=== PATIENT | male | born 1940 | race Caucasian/White ===

== ENCOUNTER 2025-01-15 16:05 | Emergency (ER) | payer MEDICARE, BC, SELFPAY ==
[2025-01-15 16:18] VITALS: BP 119/81; PULSE 67; RESP 18; TEMP 36.7; O2SAT 100; BMI 31.9
--- NOTE | 2025-01-15 16:31 | CRLHL7_ITS ---
For Patients: As a result of the Century Cures Act, medical imaging exams and procedure reports are released immediately into your electronic medical record. You may view this report before your referring provider. If you have questions, please contact your health care provider. INDICATION: Fall, on Eliquis TECHNIQUE: Noncontrast axial CT of the head. Coronal and sagittal reformats. Bone and soft tissue algorithms. COMPARISON: None. FINDINGS: Intact calvarium. No acute intracranial hemorrhage identified. No intracranial mass effect. Preserved francis-white matter differentiation. Mild generalized cerebral volume loss. Scattered hypoattenuation throughout the cerebral white matter typical of chronic microangiopathy. Unremarkable midline structures. Calcific intracranial atherosclerotic plaquing. Prominent lobulated left maxillary sinus mucosal thickening. No paranasal sinus air-fluid level or mastoid effusion. Bilateral lens implants. IMPRESSION: 1. No skull fracture or acute intracranial hemorrhage identified. Please note that all CT scans at this facility use dose modulation, iterative reconstruction, and/or weight-based dosing when appropriate to reduce radiation dose to as low as reasonably achievable. Dictated by Charo Juárez MD @ 01/15/2025 5:01:49 PM (Electronically Signed)
--- NOTE | 2025-01-15 17:07 | ED.FALL ---
HPI - Fall General Chief Complaint: Fall/Minor Trauma Stated Complaint: Fall, head lac Time Seen by Provider: 01/15/25 16:37 History of Present Illness HPI Narrative: This 84-year-old male comes in for evaluation of head injury that occurred prior to arrival. He was carrying 1 end of a 32 ft ladder and walking down hill when he lost balance and fell forward. He put out his hands to break his fall but did hit his head and has a laceration on his forehead. He did not have loss of consciousness and does not report any other injury. He was able to get up and ambulate normally. He is not complaining of a headache. He states that his head injury kept bleeding in bleeding because he is on Eliquis. He reports some evolving neck stiffness but does not have any midline tenderness. Related Data Home Medications ?Medication ?Instructions ?Recorded ?Confirmed apixaban 5 mg tablet (Eliquis) 5 mg PO BID 01/15/25 01/15/25 aspirin 81 mg capsule 81 mg PO DAILY 01/15/25 01/15/25 atorvastatin 10 mg tablet (Lipitor) 10 mg PO DAILY 01/15/25 01/15/25 lisinopril 01/15/25 metoprolol tartrate .Route 01/15/25 Allergies Allergy/AdvReac Type Severity Reaction Status Date / Time No Known Drug Allergies Allergy Verified 01/15/25 16:28 Review of Systems Status of ROS: Reports: 10 or more systems reviewed and unremarkable except as noted in History and below Narrative: Constitutional: No fevers, no weight gain or loss. Eyes: No discharge. No vision changes. HENT: No congestion, no sore throat, no ear pain. Cardiovascular: No chest pain, no palpitations. Respiratory: No shortness of breath, no wheezes, no cough. Gastrointestinal: No abdominal pain, no vomiting, no diarrhea. Genitourinary: No dysuria, no hematuria. Musculoskeletal: Normal range of motion. Skin: No rashes, no pruritis. Neurological: No dizziness, weakness, sensory change, speech change. Endo/Heme/Allergies: No bruising or bleeding. No polydipsia. Pysch: no suicidality, no anxiety, no insomnia. All other systems reviewed and are negative. Exam Narrative: Exam Narrative: Constitutional: Well-developed, well-nourished, no acute distress. HEENT: Superficial abrasions on his forehead with 1 small puncture wound under a skin flap. Neck: Normal range of motion. Nontender. Supple. Heart: Regular. No murmurs. Normal rate. Intact distal pulses. Lungs: Clear to auscultation. No chest discomfort. No wheezes, rhonchi, or rales. Abdomen: Normal bowel sounds. Nontender. No rebound tenderness. Genitalia: Deferred. Back: No midline tenderness. Normal range of motion. Extremities: Normal range of motion. Tenderness in his hands and no sign of laceration or full-thickness skin injury. Skin: Intact. No rash. Warm. No erythema or pallor. Neurologic: No altered sensation. No weakness. Alert and oriented. Psychiatric: No suicidality. No anxiety or depression. No insomnia. Nursing notes and vitals signs are reviewed. Const: Vital Signs, click to edit/add: Vital Signs - 24 hr 01/15/25 16:18 Temperature 98.0 F Pulse Rate [Pulse Oximeter] 67 Respiratory Rate 18 Blood Pressure [Ri ght Upper Arm] 119/81 Pulse Oximetry 100 Oxygen Delivery Me thod Room Air Course Vital Signs Vital signs: Initial Vital Signs Temperature 98.0 F 01/15/25 16:18 Temperature Source Temporal Artery Scan 01/15/25 16:18 Pulse Rate 67 01/15/25 16:18 Respiratory Rate 18 01/15/25 16:18 Blood Pressure 119/81 01/15/25 16:18 Blood Pressure Mean 93 01/15/25 16:18 Blood Pressure Position Sitting 01/15/25 16:18 Pulse Oximetry 100 01/15/25 16:18 Oxygen Delivery Method Room Air 01/15/25 16:18 Vital Signs Temperature 98.0 F 01/15/25 16:18 Pulse Rate 67 01/15/25 16:18 Respiratory Rate 18 01/15/25 16:18 Blood Pressure 119/81 01/15/25 16:18 Pulse Oximetry 100 01/15/25 16:18 Oxygen Delivery Method Room Air 01/15/25 16:18 Temperature 98.0 F 01/15/25 16:18 Pulse Rate 67 01/15/25 16:18 Respiratory Rate 18 01/15/25 16:18 Blood Pressure 119/81 01/15/25 16:18 Pulse Oximetry 100 01/15/25 16:18 Oxygen Delivery Method Room Air 01/15/25 16:18 MDM - Fall MDM Narrative Medical decision making narrative: This patient comes in with head injury while on Eliquis. A CT scan of his head is obtained and shows no sign of acute intracranial abnormality. I removed the bandage she had over his wound and cleanse the wound and examined it to its base. There is a small puncture wound that is full-thickness injury of the skin. The other wounds are superficial abrasions. After cleansing the wound I did apply Dermabond with good results. The patient has pain medicines that he will use as needed and directed at home. He is okay to be discharged home. Imaging Data CT scan - head: Radiologist's impression: No skull fracture or acute intracranial hemorrhage identified. Discharge Plan Discharge Clinical Impression: Laceration of scalp Patient Disposition: Home, Self-Care Condition: Stable Additional Instructions: Use current medications as needed and directed. Activity as tolerated. Follow up with MD return if worsening. Prescriptions: No Action metoprolol tartrate .Route lisinopril atorvastatin [Lipitor] 10 mg tablet 10 mg PO DAILY aspirin 81 mg capsule 81 mg PO DAILY Eliquis 5 mg tablet 5 mg PO BID Stand Alone Forms: [employer] Info Instructions
--- OUTSIDE RECORDS SUMMARY | 2025-01-15 17:16 | XMS_ITS | Clinical Summary ---
Author Organization [facility] Address [address] [place] [address] Care Team Providers Care Product Info Specialist Name Role Phone Elsewhere, Pcp Primary Care Provider Unavailabl e Source Comments Patient records contain information from all sites at [facility]. For routine questions regarding patient records, call [phone] during business hours, M-F 8:00 AM - 5:00 PM Central Time. Record requests for emergency care only can be directed to [phone] at any time.[facility] Allergies Active Allergy Reactions Criticality Noted Date Comments House Dust Mite Other (see comments) 04/02/2014 Furosemide Other (see comments) 05/30/2015 All Diuretics Milk Other (see comments) 04/02/2014 lactose sensitive Pollen Extracts Other (see comments) 11/20/2021 seasonal Tomato Other (see comments) 04/02/2014 mouth blisters Medications acyclovir (ZOVIRAX) 5 % ointment Apply topically daily as needed. 6 Active amLODIPine (NORVASC) 5 mg tablet Take 5 mg by mouth daily. 3 9 Active amoxicillin (AMOXIL) 500 mg capsule Take 4 capsules by mouth once as needed. [address] Active aspirin [address] tablet Take 1 tablet by mouth daily. 6 Active hydrocortisone (CORTAID) 1 % cream Apply 1 application topically daily as needed. 6 Active lisinopril (PRINIVIL,ZESTR IL) 20 mg tablet Take 1 tablet by mouth at bedtime. 6 Active metoprolol tartrate (LOPRESSOR) 50 mg tablet Take 1 tablet by mouth 2 (two) times a day. 6 Active oxyCODONE (ROXICODONE) 5 mg immediate release tablet Take 0.5-1 tablets by mouth as needed. 6 Active acidophilus-pec tin, citrus 100 million cell-10 mg capsule Take 1 capsule by mouth daily as needed. 6 Active hydrocortisone (ANUSOL-HC) 2.5 % rectal cream Apply topically daily as needed. 6 Active celecoxib (CELEBREX ORAL) Take 300 mg by mouth as needed. Active diphenhydrAMINE (BenadryL) 25 mg capsule Take 25 mg by mouth daily. Active acetaminophen (TYLENOL 8 HR) 650 mg ER tablet Take 1,300 mg by mouth daily. Active loratadine (CLARITIN) 10 mg tablet Take 10 mg by mouth as needed for allergies. Active atorvastatin (LIPITOR) 40 mg tablet 3 Active Eliquis 5 mg tablet 3 Active B complex-vitamin s (BALANCE B-50) tablet Take 1 tablet by mouth daily. Active Active Problems Problem Noted Date Diagnosed Date Fatigue 11/22/2021 Hyperlipidemia On Treatment 11/13/2018 Prosthesis Aortic Valve 11/13/2018 Hypertension Essential Primary 05/21/2016 Flutter Atrial 07/05/2015 Atrial Fibrillation Unspecified 06/03/2015 Social History Tobacco Use Types Packs/Day Years Used Date Smoking Tobacco: Former Cigarettes 0.3 20 0 02/18/1959 - 02/18/1978 Smokeless Tobacco: Never Tobacco Cessation:Counseling Given: Not Answered Alcohol Use Standard Drinks/Week Comments Yes 15 (1 standard drink = 0.6 oz pu re alcohol) Humiliation, Afraid, Rape, and Kick questionnair e Answer Date Recorded Within the last year, have y ou been afraid of your partner or ex-partner? No 11/16/2021 Within the last year, have y ou been humiliated or emotionally abused in other ways by your partner or ex-partner? No Within the last year, have y ou been kicked, hit, slapped, or otherwise physically hurt by your partner or ex-partner? No 11/16/2021 Within the last year, have y ou been raped or forced to have any kind of sexual activity by your partner or ex-partner? No 11/16/2021 Hunger Vital Sign Answer Date Recorded Within the past 12 months, y ou worried that your food would run out before you got the money to buy more. Never true 11/17/19 22 Within the past 12 months, t he food you bought just didn't last and you didn't have money to get more. Never true 11/16/2021 PRAPARE - Transportation Answer Date Re corded In the past 12 months, has l ack of transportation kept you from medical appointments or from getting medications? No 10/20 In the past 12 months, has l ack of transportation kept you from meetings, work, or from getting things needed for daily living? No 11/16/2021 Housing Stability Vital Sign Answer Wild e Recorded In the last 12 months, was t here a time when you were not able to pay the mortgage or rent on time? No 11/16/2021 In the last 12 months, how many places have you lived? 1 11/16/2021 In the last 12 months, was t here a time when you did not have a steady place to sleep or slept in a retirement (including now)? No 11/16/2021 Education Answer Date Recorded What is the highest level of school you have completed or the highest degree you have received? 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 Gender Identity Male 11/16/2021 4:46 PM CDT Sexual Orientation Straight 11/16/2021 4: 46 PM CDT Last Filed Vital Signs Vital Sign Reading Time Taken Comments Blood Pressure 147/92 11/22/2022 2:10 PM CDT Pulse 57 11/22/2022 2:10 PM CDT Temperature - - Respiratory Rate 16 05/21/2016 3:36 PM CDT Oxygen Saturation - - Inhaled Oxygen Concentration - - Weight 104 kg (228 lb 13.4 oz) 11/22/2022 2:10 P M CDT Height 180.5 cm (5' 11.06) 11/22/2022 2:10 PM C DT Body Mass Index 31.86 11/22/2022 2:10 PM CDT Plan of Treatment Health Maintenance Due Date Last Done Comments Office Visit for Blood Pressure Check / Re-check 1941 Zoster Vaccines (2 of 3) 12/10/2006 10/15/2006 RSV vaccine - (32-36 weeks) or 50+ years (1 - 1-dose 75+ series) 2016 Creatinine Level (Kidney Function Test) 11/22/2022 11/22/2021, 12/04/2018, 11/13/2018, Additional history exists Potassium Level 11/22/2022 11/22/2021, 10/20, 11/14/2016, Additional history exists Sodium Level 11/22/2022 11/22/2021, 10/20, 11/14/2016, Additional history exists Depression Screening (Annual PHQ-2) 02/19/2024 Fall Risk Screen (Annual) 02/19/2024 COVID-19 Vaccine ( season) 2024 11/19/2022, 11/23/2021, 06/28/2021, Additional history exists Influenza Vaccine (#1) 2024 , 11/23/2021, 11/24/2020, Additional history exists DTaP,Tdap,and Td Vaccines (3 - Td or Tdap) 09/03/2028 09/03/2018, 07/08/2008, 07/08/2008 Pneumococcal vaccine (50+ years) Completed 01/01/2018, 02/17/2015, 01/02/2006, Additional history exists IPV Vaccines Aged Out No longer eligi ble based on patient's age to complete this topic Medical Devices Implanted Type Area Hinging Machine Operator Device Identifier Shelf Expiration Date Model / Serial / Lot Valve Trifecta 23mm Tis - [employer] [id number] Implanted:Qty: 1 on 05/31/2015 Cardiac Valve Prosthesis Aorta [employer] (a Division of [employer]) Description:Device Manufactu rer - [employer] Body Location - Other. Aortic. Device Status Text - [id number]. Knee Implant Knee Implant Left: Knee Procedures Procedure Name Priority Date/Time Associated Diagnosis Comments SODIUM, S/P Routine 11/22/2021 9:32 AM CDT Prosthesis Aortic Valve Atrial Fibrillation Unspecified POTASSIUM, S/P Routine 11/22/2021 9:32 AM CDT Prosthesis Aortic Valve Atrial Fibrillation Unspecified CREATININE WITH EGFR, S/P Routine 11/22/2021 9:32 AM CDT Prosthesis Aortic Valve Atrial Fibrillation Unspecified from Last 3 Months or Most Recently Relevant to Health Maintenance Results * Sodium (11/22/2021 9:32 AM CDT) Sodium, S 142 135 - 145 mmol/L 11/22/2021 10:39 AM CDT DTL Blood (Blood, Venous) 11/22/2021 9:32 AM CDT 11/22/2021 10:09 AM CDT us Ryan Estevez Jr., M.D. LAB BLOOD ADD-ON Final R esult Performing Organization Address City/[facility]/ZIP Co de Phone Number [facility] [address] [place] [address], [facility] [address] [place] [address] * Potassium (11/22/2021 9:32 AM CDT) Potassium, S 4.3 3.6 - 5.2 mmol/L 11/22/2021 10:39 AM CDT DTL Blood (Blood, Venous) 11/22/2021 9:32 AM CDT 11/22/2021 10:09 AM CDT us Ryan Estevez Jr., M.D. LAB BLOOD ADD-ON Final R esult Performing Organization Address City/[facility]/ZIP Co de Phone Number [facility] [address] [place] [address], [facility] [address] [place] [address] * Creatinine with Estimated GFR (11/22/2021 9:32 AM CDT) Creatinine 1.09 0.74 - 1.35 mg/dL 11/22/2021 10:39 AM CDT DTL Estimated GFR (eGFR) 69 >=60 mL/min/BSA 11/22/2021 10:39 AM CDT DTL Comment: Estimated GFR calculated using the 2020 CKD_EPI creatinine equation. Blood (Blood, Venous) 11/22/2021 9:32 AM CDT 11/22/2021 10:09 AM CDT Ryan Estevez Jr., M.D. LAB BLOOD ADD-ON Final R esult [facility] [address] [place] [address], [place] [facility] [address] [place] [address] from Last 3 Months or Most Recently Relevant to Health Maintenance Insurance [facility] MEDICARE Care Teams Product Info Specialist Relationship Specialty Start Date End Date Elsewhere, Pcp PCP - General Internal Medicine 11/13/18
[2025-01-15 17:23] VITALS: BP 158/111; PULSE 68; RESP 16; O2SAT 96
== END 2025-01-15 17:37 | disposition home or self-care (01) ==
PROVIDERS: Emergency Provider Emergency Medicine Emergency Medical Services
DX: S01.01XA Laceration without foreign body of scalp, initial encounter (principal); W20.8XXA Other cause of strike by thrown, projected or falling object, initial encounter; Y93.89 Activity, other specified; Z79.01 Long term (current) use of anticoagulants
CPT/HCPCS: 12001; 70450; 99283; 99284